=== PATIENT | female | born 1965 | race Caucasian/White ===

== ENCOUNTER 2020-08-15 21:47 | Emergency (ER) | payer BC, OTHER ==
[~2020-08-15] VITALS: Ht 154.9 cm; Wt 73.1 kg
[~2020-08-15 21:47] MED LIST: NITR50CA PO
--- NOTE | 2020-08-15 23:44 | NUR ---
INITIAL PT CONTACT. PT PRESENTS TO ED C/O HIGH BP AND HAS BEEN HAVING NOSE BLEEDS TWICE A DAY FOR ABOUT A WEEK. PT REPORTS FATIGUE WELL. DAUGHTER AT BEDSIDE. PT SITING UPRIGHT, NADN, VSS. PT DENIES ANY ADDITIONAL NEEDS AT THIS TIME. CALL LIGHT IN REACH. AWAITING ERP
--- NOTE | 2020-08-16 00:45 | NUR ---
ERP AT BEDSIDE
[2020-08-16 01:04] VITALS: BP 127/75
--- NOTE | 2020-08-16 01:05 | NUR ---
PT SITING UPRIGHT, NADN, VSS. PT DENIES ANY ADDITIONAL NEEDS AT THIS TIME. CALL LIGHT IN REACH. LAB AT BEDSIDE. DAUGHTER AT BEDSIDE
[2020-08-16 01:18] LABS: BASOPHILS % (AUTO) 1 % (0-1); EOSINOPHILS % (AUTO) 1 % (1-7); LYMPHOCYTES % (AUTO) 31 % (22-44); MEAN CORPUSCULAR HEMOGLOBIN 32.2 pg (27.0-34.8); MEAN CORPUSCULAR HGB CONC 34.6 g/dL (32.4-35.8); MEAN PLATELET VOLUME 8.1 fL (7.4-10.4); MONOCYTES % (AUTO) 8 % (2-9); NEUTROPHILS % (AUTO) 59 % (42-75); PLATELET COUNT 279 x10^3/uL (130-400); RED BLOOD COUNT 3.98 x10^6/uL (3.82-5.3); RED CELL DISTRIBUTION WIDTH 13.4 % (9.6-15.2)
[2020-08-16 01:28] LABS: ANION GAP 7 mmol/L (5-15); CALCIUM 8.7 mg/dL (8.5-10.1); CHLORIDE 110 mmol/L (98-107); CREATININE 0.72 mg/dL (0.55-1.02)
[2020-08-16 01:29] LABS: MD NO
== END 2020-08-16 01:47 | disposition home or self-care (01) ==
LOC: ED 08-16 00:43
DX: R04.0 Epistaxis (principal); I10 Essential (primary) hypertension; R94.31 Abnormal electrocardiogram [ECG] [EKG]
CPT/HCPCS: 36415; 80048; 85025; 93005; 99284